=== PATIENT | male | born 1960 | race American Indian/Alaskan Native ===

== ENCOUNTER 2019-01-02 22:13 | Emergency (ER) | payer OTHER ==
[2019-01-02] MEDS ORDERED: NACL 0.9% 1000 ML 1,000 ML IV ONE (23:42)
[2019-01-03 00:09] LABS: Basophils % (Auto) 0.4 % (0.0-1.8); Eosinophils % (Auto) 0.3 % (0.0-4.3); Hematocrit 36.6 % (35.5-45.6); Hemoglobin 12.6 gm/dl (11.8-15.2); Lymphocytes # (Auto) 0.8 K/mm3 (1.2-5.4); Lymphocytes % (Auto) 11.9 % (13.4-35.0); Mean Corpuscular HGB Conc 34 % (32-34); Mean Corpuscular Volume 92 fl (84-94); Monocytes # (Auto) 0.8 K/mm3 (0.0-0.8); Monocytes % (Auto) 12.1 % (0.0-7.3); Red Blood Count 3.96 M/mm3 (3.65-5.03); Red Cell Distribution Width 16.1 % (13.2-15.2)
[2019-01-03 00:15] LABS: Platelet Count 67 K/mm3 (140-440)
[2019-01-03 00:33] LABS: Alanine Aminotransferase 40 units/L (7-56); Albumin 2.9 g/dL (3.9-5); BUN/Creatinine Ratio 13; Blood Urea Nitrogen 12 mg/dL (9-20); Calcium 8.8 mg/dL (8.4-10.2); Hemolysis Index 4
[2019-01-03 01:22] LABS: Bilirubin,Urine NEG (Negative); Blood,Urine SM (Negative); Color,Urine Amber (Yellow); Mucus,Urine 3+ /HPF
[2019-01-03] MEDS ORDERED: ZOFRAN IV ONE (02:05)
[2019-01-03] MEDS ORDERED: MORPHINE IV ONE (02:05)
--- NOTE | 2019-01-03 02:10 | Emergency Department Report ---
ED Abdominal Pain HPI - General Chief Complaint: Abdominal Pain Stated Complaint: ABD PAIN Time Seen by Provider: 01/03/19 01:59 Source: patient Mode of arrival: Ambulatory Limitations: No Limitations - History of Present Illness Initial Comments: Patient is 58 years old male with history of liver cancer and hepatitis C. Patient presented to the emergency room complaining of abdominal pain, diffuse, crampy in nature associated with nausea but no vomiting. Patient also found to have a low-grade temperature. Patient is complaining of cough. Patient denied any chest pain or shortness of breath. MD Complaint: abdominal pain -: Last night Location: diffuse Radiation: none Migration to: no migration Severity scale (0 -10): 7 Quality: sharp Consistency: intermittent - Related Data Allergies Allergy/AdvReac Type Severity Reaction Status Date / Time No Known Allergies Allergy Verified 01/02/19 22:18 ED Review of Systems ROS: Stated complaint: ABD PAIN Other details as noted in HPI Comment: All other systems reviewed and negative Constitutional: fever Respiratory: cough. denies: orthopnea, shortness of breath, SOB with exertion, SOB at rest, wheezing Cardiovascular: denies: chest pain, palpitations, dyspnea on exertion Gastrointestinal: abdominal pain, nausea, vomiting. denies: diarrhea, constipation, hematemesis, melena, hematochezia Genitourinary: denies: urgency, dysuria, frequency, hematuria Neurological: denies: headache, weakness, numbness, paresthesias, confusion, abnormal gait ED Past Medical Hx - Past Medical History Previous Medical History?: Yes Hx Liver Disease: Yes (HEP C/Cirrhosis/Liver Cancer tx at [facility]) Additional medical history: History of Blood transfusions, Takes Lactulose for high Ammonia levels, Chronic neck and back pain - Social History Smoking Status: Never Smoker ED Physical Exam - General Limitations: No Limitations General appearance: alert, in no apparent distress - Head Head exam: Present: atraumatic, normocephalic, normal inspection - Eye Eye exam: Present: normal appearance, PERRL - ENT ENT exam: Present: normal exam, normal orophraynx, mucous membranes moist - Neck Neck exam: Present: normal inspection, full ROM. Absent: tenderness, meningismus, lymphadenopathy, thyromegaly - Respiratory Respiratory exam: Present: normal lung sounds bilaterally - Cardiovascular Cardiovascular Exam: Present: regular rate, normal rhythm, normal heart sounds - GI/Abdominal GI/Abdominal exam: Present: soft, normal bowel sounds. Absent: distended, tenderness, guarding, rebound, rigid, organomegaly, mass, bruit, pulsatile mass, hernia - Extremities Exam Extremities exam: Present: normal inspection, full ROM, normal capillary refill. Absent: pedal edema, calf tenderness - Back Exam Back exam: Present: normal inspection, full ROM. Absent: tenderness, CVA tenderness (R), CVA tenderness (L), muscle spasm, paraspinal tenderness, vertebral tenderness - Neurological Exam Neurological exam: Present: alert, oriented X3, CN II-XII intact, normal gait, reflexes normal - Skin Skin exam: Present: warm, intact, normal color ED Course Vital Signs 01/02/19 01/03/19 23:38 01:31 Temperature 100.0 F H 99.8 F H Pulse Rate 95 H 79 Respiratory 18 19 Rate Blood Pressure 163/94 Blood Pressure 171/80 [Left] O2 Sat by Pulse 100 98 Oximetry ED Medical Decision Making - Lab Data Result diagrams: 01/02/19 23:46 01/02/19 23:46 - Radiology Data Radiology results: report reviewed Referring Physician: MIHIR DENNEY Patient Name: DARRYN HUITRON Date of : 1960 Sex: Male Report Date: 2019-01-03 Report Status: Final[place] [address] Cat Scan Report Signed Patient: DARRYN HUITRON MR#: [id number] : 1960 Acct:[id number] Age/Sex: 58 / M ADM Date: 01/02/19 Loc: ED Attending Dr: Ordering Physician: MIHIR DENNEY Date of Service: 01/03/19 Procedure(s): CT abdomen pelvis w con Accession Number(s): [id number] cc: MIHIR DENNEY FINAL REPORT PROCEDURE: CT ABDOMEN PELVIS W CON TECHNIQUE: Computerized axial tomography of the abdomen and pelvis was performed after the IV injection of iodinated nonionic contrast. HISTORY: abdominal pain/liver cancer COMPARISON: No prior studies are available for comparison. FINDINGS: Visualized lower thorax: No significant abnormality. Liver: The liver is slightly small and nodular. There are a few calcifications in the upper right lobe of the liver. A few areas hypoattenuation in the lower right lobe of the liver are noted. These are not completely evaluated on this study.. Spleen: Spleen is slightly enlarged. Gallbladder and biliary system: Normal. Pancreas: Normal. Adrenals: Normal. Kidneys: Normal. GI tract: There is a moderate-sized hiatal hernia. No obstruction is seen. There is bowel wall thickening involving colon, this involves ascending and transverse colon region consistent with colitis. Minimal streaking of the. Pulmonic fat is noted in these regions. No complication. The appendix is not clearly visualized on this study. Moderate fecal debris within colon is noted.. Lymph nodes and mesentery: Diffuse small lymph nodes scattered in the mesentery.. Vasculature: Normal. Bladder: Normal. Reproductive organs: Normal. Peritoneum: No free fluid. Musculoskeletal structures: . Other: None. IMPRESSION: Bowel wall thickening with some mesenteric stranding along the ascending and transverse colon, consistent with colitis. No complication is seen. There is no evidence of intestinal or urinary tract obstruction. The liver is slightly small in nodular on this study. There are some calcifications in areas of hypoattenuation in the right lobe of the liver, these areas are not completely evaluated on this study. Mild splenomegaly. Transcribed By: [facility] Dictated By: RADU MONROY MD Electronically Authenticated By: RADU MONROY MD Signed Date/Time: 01/03/19319 DD/ 8 TD/TT: 01/03/19318 - Medical Decision Making Patient is 58 years old male with history of liver cancer and hepatitis C. Patient presented to the emergency room complaining of abdominal pain, diffuse, crampy in nature associated with nausea but no vomiting. Patient also found to have a low-grade temperature. Patient is complaining of cough. Patient denied any chest pain or shortness of breath. Patient stated that he is feeling much better. CT abdomen and pelvis showed co litis. Receive Zosyn in the ER. I will discharge patient on Flagyl and ciprofloxacin and I advised the patient to follow-up with his primary care physician in the next 2-3 days. Also advised to return to the ER if his symptoms are not improved. Critical care attestation.: If time is entered above; I have spent that time in minutes in the direct care of this critically ill patient, excluding procedure time. ED Disposition Clinical Impression: Abdominal pain, Colitis Disposition: TO HOME OR SELFCARE Is pt being admited?: No Condition: Stable Instructions: Abdominal Pain (ED), Infectious Colitis (ED) Referrals: [facility] [Other] - 3-5 Days
--- NOTE | 2019-01-03 02:30 | XRay Report ---
FINAL REPORT PROCEDURE: XR CHEST 1V AP TECHNIQUE: Chest radiograph anteroposterior view. CPT 52727 HISTORY: cough COMPARISON: No prior studies are available for comparison. FINDINGS: Heart: Normal. Mediastinum/Vessels: Normal. Lungs/Pleural space: Normal. Bony thorax: No acute osseous abnormality. Life support devices: None. IMPRESSION: No acute cardiopulmonary abnormality.
--- NOTE | 2019-01-03 03:20 | Cat Scan Report ---
FINAL REPORT PROCEDURE: CT ABDOMEN PELVIS W CON TECHNIQUE: Computerized axial tomography of the abdomen and pelvis was performed after the IV inject ion of iodinated nonionic contrast. HISTORY: abdominal pain/liver cancer COMPARISON: No prior studies are available for comparison. FINDINGS: Visualized lower thorax: No significant abnormality. Liver: The liver is slightly small and nodular. There are a few calcifications in the upper right lob e of the liver. A few areas hypoattenuation in the lower right lobe of the liver are noted. These are not completely evaluated on this study.. Spleen: Spleen is slightly enlarged. Gallbladder and biliary system: Normal. Pancreas: Normal. Adrenals: Normal. Kidneys: Normal. GI tract: There is a moderate-sized hiatal hernia. No obstruction is seen. There is bowel wall thicke jonas involving colon, this involves ascending and transverse colon region consistent with colitis. Mi nimal streaking of the. Pulmonic fat is noted in these regions. No complication. The appendix is not clearly visualized on this study. Moderate fecal debris within colon is noted.. Lymph nodes and mesentery: Diffuse small lymph nodes scattered in the mesentery.. Vasculature: Normal. Bladder: Normal. Reproductive organs: Normal. Peritoneum: No free fluid. Musculoskeletal structures: . Other: None. IMPRESSION: Bowel wall thickening with some mesenteric stranding along the ascending and transverse colon, consis tent with colitis. No complication is seen. There is no evidence of intestinal or urinary tract obstruction. The liver is slightly small in nodular on this study. There are some calcifications in areas of hypoa ttenuation in the right lobe of the liver, these areas are not completely evaluated on this study. Mild splenomegaly.
[2019-01-03] MEDS ORDERED: ZOSYN/NS 3.375GM/50ML 3.375 GM/50 ML BAG IV ONE (04:00)
[2019-01-03 04:15] VITALS: BP 135/82
== END 2019-01-03 05:06 | disposition home or self-care (01) ==
LOC: ED 22:13
DX: K52.9 Noninfective gastroenteritis and colitis, unspecified (principal); Z85.05 Personal history of malignant neoplasm of liver; G89.29 Other chronic pain
CPT/HCPCS: 36415; 71045; 74177; 80053; 81001; 82140; 83690; 85025; 87040; 96365; 96375; 99284; J2270; J2405; J2543; Q9967